=== PATIENT | male | born 1935 | race Caucasian/White ===

== ENCOUNTER 2019-05-02 23:51 | Inpatient (IN) | payer MEDICARE, BC ==
[~2019-05-02] VITALS: Ht 172.7 cm; Wt 92.1 kg
[2019-05-03] VITALS (8 sets, daily range): BP systolic 92–179; BP diastolic 50–74
--- NOTE | 2019-05-03 00:24 | NUR ---
MICHAEL FROM [facility] C/O "10PM. EXPRESSIVE APHASIA, +DIZZY X1 DAY AGO" NO NEURO DEFICITS, TO ER BED 1, VSS STABLE LABS DRAWN AND SENT OUT.
[2019-05-03 00:26] LABS: BASOPHILS # (AUTO) 0.1 /CMM (0.0-0.2); BASOPHILS % (AUTO) 0.9 % (0.0-2.0); EOSINOPHILS % (AUTO) 5.2 % (0.0-6.0); HEMATOCRIT 41 % (39-51); HEMOGLOBIN 13.7 g/dL (13.5-17.5); LYMPHOCYTES # (AUTO) 1.1 /CMM (0.8-4.8); LYMPHOCYTES % (AUTO) 11.8 % (20.0-44.0); MEAN CORPUSCULAR HGB CONC 34 g/dl (31.0-36.0); MEAN CORPUSCULAR VOLUME 86 fL (80-96); NEUTROPHILS # (AUTO) 6.4 /CMM (1.8-8.9); NEUTROPHILS % (AUTO) 71.1 % (43.0-81.0); PLATELET COUNT (AUTO) 187 /CMM (150-450); RED BLOOD CELL COUNT(AUTO) 4.75 MIL/uL (4.5-6.0)
[2019-05-03 00:38] LABS: CALCIUM, SERUM 9.8 mg/dL (8.5-10.1); CARBON DIOXIDE 27 mmol/L (21-32); CHLORIDE 103 mmol/L (98-107); CREATININE 1.7 mg/dL (0.6-1.3); GLUCOSE 128 mg/dL (74-106); POTASSIUM 4.3 mmol/L (3.5-5.1); SODIUM SERUM 139 mmol/L (136-145); UREA NITROGEN, BLOOD 40 mg/dL (7-18)
[2019-05-03] MEDS ORDERED: IOHEXOL-350 100 ML VIAL IV ONE (01:02)
[2019-05-03] MEDS ORDERED: IV NS 0.9% 250 ML IV ONE (01:03)
[2019-05-03] MEDS ORDERED: CT SWABBABLE VALVE TRANS SET 1 EA INFUS.SET MC ONE (01:03)
--- NOTE | 2019-05-03 01:08 | NUR ---
PT TAKEN TO CT
[2019-05-03] MEDS ORDERED: ASPI-605 PO (01:10)
[2019-05-03] MEDS ORDERED: CARV12.52 PO (01:10)
[2019-05-03] MEDS ORDERED: ICOS1CAP PO (01:10)
[2019-05-03] MEDS ORDERED: AMLO5TAB4 PO (01:11)
[2019-05-03] MEDS ORDERED: ROSU5TAB PO (01:12)
[2019-05-03] MEDS ORDERED: MAGN400T8 PO (01:12)
[2019-05-03] MEDS ORDERED: CHOL100040 PO (01:13)
[2019-05-03] MEDS ORDERED: VIT1CAPS27 PO (01:13)
[2019-05-03] MEDS ORDERED: CYAN100071 PO (01:14)
[2019-05-03] MEDS ORDERED: LOSA50TA39 PO (01:15)
[2019-05-03] MEDS ORDERED: HYDR-4077 PO (01:15)
[2019-05-03] MEDS ORDERED: CLON0.2T PO (01:16)
[2019-05-03] MEDS ORDERED: DOXE10CA2 PO (01:17)
--- NOTE | 2019-05-03 01:23 | NUR ---
PT RETURNED FROM CT
--- NOTE | 2019-05-03 01:27 | NUR ---
URINE COLLECTED AND SENT TO LAB
--- NOTE | 2019-05-03 02:57 | NUR ---
BED 111-1
[2019-05-03] MEDS ORDERED: MAG HYDROX/AL HYDROX/SIMETH 30 ML UDC PO PRN (03:00)
[2019-05-03] MEDS ORDERED: ACETAMINOPHEN 325 MG TABLET PO PRN (03:00)
--- NOTE | 2019-05-03 03:00 | NUR ---
METAL POLISHER AND BUFFER APPRENTICE OPENING NOTE RECEIVED REPORT FROM MARCOS ER NURSE. PATIENT IN BED A/O X4 WITH NO SIGN OF ANY DISTRESS. PATIENT HAS AND CAREGIVER AT BEDSIDE. IV ACCESS ON THE LFA #20 PATENT AND FLUSHING. NEURO ASSESSMENT HAS BEEN CHECKED NO SIGN OF DRIFTING OR ANY SORT. PATIENT HAS LOWER AND UPPER MILD WEAKNESS ON BED REST FOR NOW WITH URINAL AT BEDSIDE. ALL NEEDS HAVE BEEN MET PATIENT TOLERATING ON ROOM AIR AT O2 SAT OF 98%. ALL SAFETY PRECAUTION HAVE BEEN APPLIED, WILL CONTINUE TO MONITOR PATIENT.
--- NOTE | 2019-05-03 03:09 | NUR ---
GAVE REPORT TO DESIRE RN
--- NOTE | 2019-05-03 03:40 | NUR ---
TAKEN TO FLOOR VIA ACLS PROTOCOL
[2019-05-03] MEDS ORDERED: ENOXAPARIN SODIUM 40 MG/0.4 ML DISP.SYRIN SQ ONE (04:00)
[2019-05-03 05:15] LABS: APPEARANCE,URINE CLEAR (CLEAR); COLOR,URINE Light yellow (YELLOW)
[2019-05-03 05:16] LABS: BILIRUBIN,URINE NEGATIVE (NEGATIVE); BLOOD, URINE NEGATIVE Ery/uL (NEGATIVE); KETONES,URINE NEGATIVE (NEGATIVE); LEUKOCYTE ESTERASE ,URINE NEGATIVE (NEGATIVE); NITRITE, URINE NEGATIVE (NEGATIVE); PROTEIN,URINE 2+ mg/dl (NEGATIVE); UGLUCOSE NEGATIVE (NEGATIVE); UROBILINOGEN,URINE 0.2 EU/dL (0.2)
[2019-05-03 05:31] LABS: BACTERIA,URINE Rare /HPF (None Seen); RBC,URINE 0-2 /HPF (0-2); SQUAMOUS EPITHELIAL CELL,UR Rare /HPF (None Seen)
[2019-05-03] MEDS: BLOOD SUGAR DIAGNOSTIC 1 EACH STRIP IN SCH ×7 (07:13→21:42)
--- NOTE | 2019-05-03 07:46 | NUR ---
MOLECULAR GENETIC PATHOLOGIST CLOSING NOTE PATIENT IN BED WITH NO SIGN OF DISTRESS. TOLERATING ON ROOM AIR. CAREGIVER AT BED SIDE. NO SIGNIFICANT CHANGES THROUGHOUT THE NIGHT. ENDORSED PATIENT TO MORNING SHIFT NURSED FOR NAIN/.
--- NOTE | 2019-05-03 08:00 | NUR ---
CINETECHNICIAN AM NOTES RECEIVED PATIENT IN BED A/O X4 WITH NO SIGN OF ANY DISTRESS. PATIENT HAS AND CAREGIVER AT BEDSIDE. IV ACCESS ON THE LFA #20 PATENT AND FLUSHING. NEURO ASSESSMENT HAS BEEN CHECKED NO SIGN OF DRIFTING OR ANY SORT. PATIENT HAS LOWER AND UPPER MILD WEAKNESS ON BED REST BUT AMBULATES WITH ASSIST WITH FWW.WITH URINAL AT BEDSIDE. ON ROOM AIR AT O2 SAT OF 98%. ALL SAFETY PRECAUTION HAVE BEEN APPLIED, WILL CONTINUE TO MONITOR PATIENT.
[2019-05-03] MEDS ORDERED: Medication Not On Formulary EA (Rosuvastatin Calcium (Crestor) 1 TAB) PO SCH (09:00)
[2019-05-03] MEDS ORDERED: DOXEPIN HCL 10 MG CAPSULE PO SCH (09:00)
[2019-05-03] MEDS ORDERED: AMLODIPINE BESYLATE 5 MG TABLET PO SCH (09:00)
[2019-05-03] MEDS: MAGNESIUM OXIDE 400 MG TABLET PO SCH (09:21)
[2019-05-03] MEDS: hydrALAZINE HCL 50 MG TABLET PO SCH ×2 (09:23→16:04)
[2019-05-03] MEDS: LOSARTAN POTASSIUM 50 MG TABLET PO SCH ×2 (09:23→16:04)
[2019-05-03] MEDS: PANTOPRAZOLE 40 MG TABLET.DR PO SCH (09:23)
[2019-05-03] MEDS: CARVEDILOL 12.5 MG TABLET PO SCH ×2 (09:23→16:03)
[2019-05-03] MEDS: CLONIDINE HCL 0.1 MG TABLET PO SCH ×2 (09:24→16:03)
[2019-05-03] MEDS: ASPIRIN EC 325 MG TABLET.DR PO SCH (09:29)
[2019-05-03] MEDS: DOXEPIN HCL 10 MG CAPSULE PO SCH (10:25)
--- NOTE | 2019-05-03 12:00 | NUR ---
PT SITTING IN THE CHAIR WITH THE CG FEEDING HIM LUNCH.PT DENIES ANY PAIN/DISTRESS AND WANTS FRAPUCCINO. CG WILL BRING THE DRINK FOR THE PT.
--- NOTE | 2019-05-03 12:22 | NUR ---
Social work consult requested for stroke. Pt is an 83 year old male admitted to [facility] for TIA. Pt currently lives at home [[id number] [place] [address]] with his [Daisy Jacobs [phone]]. Pt presents as tired and is oriented x 4 [person, place, time, situation]. Pts and caregiver, Fran, at bedside. Per pts , pt has 2 caregivers that provide 20 hours of care per day and family feels well supported at home. No present mental health concerns, including suicidal and homicidal ideation, or any concerns with alcohol/substance abuse. No further school social worker needs identified at this time as pt family states he is well equipped at home with resources. SW will remain available should any needs arise.
[2019-05-03] MEDS ORDERED: IV NS 0.9% 1,000 ML BAG IV ONE (13:00)
--- NOTE | 2019-05-03 13:00 | NUR ---
PT SLEEPING COMFORTABLY IN BED WITH NO S/S OF PAIN OR DISTRESS.WILL MONITOR.
--- NOTE | 2019-05-03 17:22 | NUR ---
PT RESTING IN BED DENYING ANY PAIN OR DISTRESS.CALL LIGHT PLACED WITHIN REACH.
--- NOTE | 2019-05-03 20:00 | NUR ---
TRAFFIC INSPECTOR AM NOTES RECEIVED PATIENT IN BED A/O X4 WITH NO SIGN OF ANY DISTRESS. CAREGIVER AT BEDSIDE. IV ACCESS ON THE LFA #20 PATENT ,V/S STABLE AFEBRILE . DUE MEDS GIVEN ORDERED . NEURO ASSESSMENT CHECKED NO SIGN OF DRIFTING OR ANY SORT. PATIENT HAS LOWER AND UPPER MILD WEAKNESS ON BED REST BUT AMBULATES WITH ASSIST WITH FWW.WITH URINAL AT BEDSIDE. ON ROOM AIR AT O2 SAT OF 95%. ALL SAFETY PRECAUTION OBSERVED , WILL CONTINUE TO MONITOR PATIENT.
[2019-05-03] MEDS ORDERED: SIMVASTATIN 10 MG TABLET PO SCH (22:00)
--- NOTE | 2019-05-03 22:00 | NUR ---
BLOOD SUGAR AT 2200 HRS IS 142MG/DL NO COVERAGE GIVEN.
[2019-05-04] VITALS: BP 185/71
--- NOTE | 2019-05-04 | NUR ---
BLOOD SUGAR AT 12MN IS 110MG /DL NO COVERAGE GIVEN.
--- NOTE | 2019-05-04 | NUR ---
BLOOD PRESSURE OF 185/71,SPOKE TO LYUBOV HART WITH ORDER LABETALOL HCL 10MG IV Q 8 HRS PRN FOR SBP>160 MADE HER AWARE HR IS 60 /MIN SHE SAID ITS ALRIGHT TO GIVE.
[2019-05-04] MEDS ORDERED: LABETALOL HCL IV 100MG VIAL IV PRN (00:30)
[2019-05-04] MEDS: BLOOD SUGAR DIAGNOSTIC 1 EACH STRIP IN SCH ×4 (00:55→12:00)
[2019-05-04 01:00] VITALS: BP 160/70
--- NOTE | 2019-05-04 01:00 | NUR ---
RECHECK BLOOD PRESSURE AT 1 AM ,BP 158/75
[2019-05-04 04:00] VITALS: BP 159/70
--- NOTE | 2019-05-04 06:10 | NUR ---
RN NOTE: NOTIFIED ANNETTE CAMPBELL EXTRACTOR TENDER RAW STOCK ABOUT BS 178 AT 0600. PER DOSE INSTRUCTION, CALL HCP IF BS ABOVE 150. PER EXTRACTOR TENDER RAW STOCK, START PATIENT ON MILD S/S.
[2019-05-04] MEDS ORDERED: DEXTROSE 50%-WATER 50 ML DISP.SYRIN IV PRN (06:30)
[2019-05-04] MEDS ORDERED: INSULIN REGULAR, HUMAN 100 UNIT/ML 3 ML VIAL SQ PRN (06:30)
[2019-05-04 07:13] LABS: CHOLESTEROL 128 mg/dL (<200); HDL CHOLESTEROL 30 mg/dL (40-60); LDL 71 mg/dL (0-99); TRIGLYCERIDES 210 mg/dL (30-150)
[2019-05-04 07:18] LABS: BASOPHILS % (AUTO) 0.5 % (0.0-2.0); EOSINOPHILS % (AUTO) 4.6 % (0.0-6.0); HEMATOCRIT 40 % (39-51); HEMOGLOBIN 13.2 g/dL (13.5-17.5); LYMPHOCYTES # (AUTO) 1.1 /CMM (0.8-4.8); LYMPHOCYTES % (AUTO) 12.8 % (20.0-44.0); MEAN CORPUSCULAR HGB CONC 33 g/dl (31.0-36.0); MEAN CORPUSCULAR VOLUME 85 fL (80-96); MONOCYTES # (AUTO) 0.9 /CMM (0.1-1.30); NEUTROPHILS % (AUTO) 71.1 % (43.0-81.0); PLATELET COUNT (AUTO) 171 /CMM (150-450); RED BLOOD CELL COUNT(AUTO) 4.64 MIL/uL (4.5-6.0); WHITE BLOOD COUNT (AUTO) 8.4 K/uL (4.3-11.0)
[2019-05-04 07:31] LABS: ALANINE AMINOTRANSFERASE 23 U/L (12-78); ALBUMIN 3.1 g/dL (3.4-5.0); ALKALINE PHOSPHATASE 90 U/L (46-116); ASPARTATE AMINOTRANSFERASE 16 U/L (15-37); BILIRUBIN,TOTAL 0.5 mg/dL (0.2-1.0); CALCIUM, SERUM 9.5 mg/dL (8.5-10.1); CARBON DIOXIDE 25 mmol/L (21-32); CHLORIDE 102 mmol/L (98-107); CREATININE 1.8 mg/dL (0.6-1.3); GLUCOSE 132 mg/dL (74-106); MAGNESIUM 2.2 mg/dL (1.8-2.4); PHOSPHORUS 3.3 mg/dL (2.5-4.9); POTASSIUM 4.1 mmol/L (3.5-5.1); SODIUM SERUM 139 mmol/L (136-145); TOTAL PROTEIN, SERUM 6.3 g/dL (6.4-8.2); UREA NITROGEN, BLOOD 33 mg/dL (7-18)
[2019-05-04 08:00] VITALS: BP 180/81
[2019-05-04] MEDS: CLONIDINE HCL 0.1 MG TABLET PO SCH (08:29)
[2019-05-04] MEDS: PANTOPRAZOLE 40 MG TABLET.DR PO SCH (08:29)
[2019-05-04] MEDS: ASPIRIN EC 325 MG TABLET.DR PO SCH (08:29)
[2019-05-04] MEDS: CARVEDILOL 12.5 MG TABLET PO SCH (08:30)
[2019-05-04] MEDS: LOSARTAN POTASSIUM 50 MG TABLET PO SCH (08:33)
[2019-05-04] MEDS: hydrALAZINE HCL 50 MG TABLET PO SCH (08:33)
[2019-05-04] MEDS: MAGNESIUM OXIDE 400 MG TABLET PO SCH (08:34)
[2019-05-04] MEDS: DOXEPIN HCL 10 MG CAPSULE PO SCH (08:35)
[2019-05-04] MEDS ORDERED: AMLODIPINE BESYLATE 5 MG TABLET PO SCH (09:00)
[2019-05-04] MEDS ORDERED: ENOXAPARIN SODIUM 40 MG/0.4 ML DISP.SYRIN SQ SCH (09:00)
[2019-05-04] MEDS ORDERED: CLOPIDOGREL BISULFATE 75 MG TABLET PO SCH (10:00)
[2019-05-04 10:30] VITALS: BP 157/61
[2019-05-04] MEDS ORDERED: CLOP75TA15 PO (13:16)
[2019-05-04 16:00] VITALS: BP 150/68
--- NOTE | 2019-05-04 16:55 | NUR ---
rn note pt discharged home in stable condition, with Daisy, discharge instructions provided, teachings done, prescription given and faxed to the pharmacy, exit care done, pt verbalized understanding, pt refused picture of sacrum to be taken risks and benefits explained. iv site removed, id band removed, belongings list signed, and given to pt. hearing aids in pt's both ears. pt wheeled out to the private car.
== END 2019-05-04 16:50 | disposition home or self-care (01) | DRG 69 ==
LOC: ER 23:53 → TELE1 05-03 03:05 → MEDSG1 05-04 09:18
DX: G45.9 Transient cerebral ischemic attack, unspecified (principal); N17.0 Acute kidney failure with tubular necrosis; I13.0 Hypertensive heart and chronic kidney disease with heart failure and stage 1 through stage 4 chronic kidney disease, or unspecified chronic kidney disease; R47.01 Aphasia; G47.00 Insomnia, unspecified; E78.5 Hyperlipidemia, unspecified; N18.9 Chronic kidney disease, unspecified; I50.9 Heart failure, unspecified; R56.9 Unspecified convulsions; I71.2 Thoracic aortic aneurysm, without rupture
CPT/HCPCS: 36415; 70450-TC; 70496-TC; 70498-TC; 71045-TC; 80048-TC; 80053-TC; 80061-TC; 80305; 81000-TC; 82962-TC; 83735-TC; 84100-TC; 84443-TC; 84484-TC; 85025-TC; 85730-TC; 87081-TC; 92611-TC; 93307-TC; 97116-TC; 97530-TC; G0378; J1650; J1815; J3490; J7030; J7050; Q9967

== ENCOUNTER 2019-05-05 09:41 | Inpatient (IN) | payer MEDICARE, BC ==
[2019-05-05] VITALS (24 sets, daily range): BP systolic 140–188; BP diastolic 58–78
[~2019-05-05] VITALS: Ht 172.7 cm; Wt 93.0 kg
[~2019-05-05 09:41] MED LIST: AMLO5TAB4 PO; ASPI-605 PO; CARV12.52 PO; CHOL100040 PO; CLON0.2T PO; CLOP75TA15 PO; CYAN100071 PO; DOXE10CA2 PO; HYDR-4077 PO; ICOS1CAP PO; LOSA50TA39 PO; MAGN400T8 PO; ROSU5TAB PO; VIT1CAPS27 PO
[2019-05-05] MEDS ORDERED: IOHEXOL-350 100 ML VIAL IV ONE ×3 (09:53→14:33)
--- NOTE | 2019-05-05 10:06 | NUR ---
PATIENT [facility] ED BIB EMD FROM HOME C/C RT WEAKNESS ,PATIENT NON VERBAL AWAKE ABLE TO FOLLOW TRACT BS 125 ,HELPLOCK LFA ,OBTAINED LAC ,TRASFER TO CT FOE CT HEAD AND AND CTA WITH MONITOR
[2019-05-05 10:24] LABS: BASOPHILS # (AUTO) 0.1 /CMM (0.0-0.2); BASOPHILS % (AUTO) 0.7 % (0.0-2.0); EOSINOPHILS % (AUTO) 4.4 % (0.0-6.0); HEMATOCRIT 40 % (39-51); HEMOGLOBIN 13.2 g/dL (13.5-17.5); LYMPHOCYTES # (AUTO) 0.9 /CMM (0.8-4.8); LYMPHOCYTES % (AUTO) 10.7 % (20.0-44.0); MEAN CORPUSCULAR HGB CONC 33 g/dl (31.0-36.0); MEAN CORPUSCULAR VOLUME 86 fL (80-96); MONOCYTES % (AUTO) 11.8 % (2.0-12.0); NEUTROPHILS # (AUTO) 5.9 /CMM (1.8-8.9); NEUTROPHILS % (AUTO) 72.4 % (43.0-81.0); PLATELET COUNT (AUTO) 168 /CMM (150-450); RED BLOOD CELL COUNT(AUTO) 4.59 MIL/uL (4.5-6.0); WHITE BLOOD COUNT (AUTO) 8.1 K/uL (4.3-11.0)
--- NOTE | 2019-05-05 10:30 | NUR ---
daughter, caty [phone]
--- NOTE | 2019-05-05 10:44 | NUR ---
Patient non verbal Rt side droop ,rt side weakness his @ bedside made aware paln of care
--- NOTE | 2019-05-05 10:54 | NUR ---
CALLED [email or web address] SUPERVISOR METALIZING WAS PAGED
--- NOTE | 2019-05-05 10:57 | NUR ---
CALLED HOUSE SUP FOR ROSSY BED
[2019-05-05] MEDS ORDERED: ASPIRIN 300 MG/SUPP.RECT RC ONE ×2 (11:00→12:06)
--- NOTE | 2019-05-05 11:07 | NUR ---
CALLED CCT AT [facility]. SPOKE TO NILA TO SEE IF THERE ARE ANY AVAILABLE BEDS FOR PT TO BE TRANSFERRED PER FAMILY REQUEST.
--- NOTE | 2019-05-05 11:07 | NUR ---
Patient @ bedside requsting for [facility] aware
[2019-05-05 11:08] LABS: CALCIUM, SERUM 9.4 mg/dL (8.5-10.1); CARBON DIOXIDE 26 mmol/L (21-32); CHLORIDE 101 mmol/L (98-107); CREATININE 1.8 mg/dL (0.6-1.3); GLUCOSE 124 mg/dL (74-106); POTASSIUM 4.6 mmol/L (3.5-5.1); SODIUM SERUM 135 mmol/L (136-145); UREA NITROGEN, BLOOD 32 mg/dL (7-18)
--- NOTE | 2019-05-05 11:15 | NUR ---
Patient lethargic eys close desat Dr. John made aware -prep for intubation called RT
--- NOTE | 2019-05-05 11:16 | NUR ---
NURSING SUP GAVE BED 106.
[2019-05-05] MEDS ORDERED: PROPOFOL 100 ML ONE (11:26)
--- NOTE | 2019-05-05 11:30 | NUR ---
RT PATIENT WAS ORALLY INTUBATED BY DR GROSS WITH A 7.O ETT SECURED AT 24CM MID LIP. BILAT BREATH SOUNDS HEARD. POSITIVE CO2 DETECTOR COLOR CHANGE. PATIENT PLACED ON VENT WITH ORDERED SETTINGS. ALARMS CHECKED + AUDIBLE. BRUCEU BAG AT HOB Addendum: 05/05/19 at 1159 by ORVILLE ALMAGUER RT Amended: Links added.
[2019-05-05 11:43] LABS: CHOLESTEROL 124 mg/dL (<200); HDL CHOLESTEROL 26 mg/dL (40-60); LDL 71 mg/dL (0-99); TRIGLYCERIDES 254 mg/dL (30-150)
--- NOTE | 2019-05-05 11:44 | NUR ---
NURSING SUP GAVE ICU BED 259.
[2019-05-05] MEDS ORDERED: PROPOFOL 100 ML IV PRN ×2 (12:00→13:00)
[2019-05-05] MEDS ORDERED: PROPOFOL 200 MG/20 ML VIAL IV ONE (12:00)
--- NOTE | 2019-05-05 12:01 | NUR ---
Patient intubated noted bilateral lungs sound ,color checked changed Rt @ bedisde ,OG inserted noted bublimng sound x2 double checked by Mateo rN ,inseted mckenzie noted yellow urine Rt forearm 20 G diprivam indfusing well
--- NOTE | 2019-05-05 12:17 | NUR ---
Report given to Sophia JOHNSON RN
[2019-05-05] MEDS ORDERED: FUROSEMIDE 40 MG/4 ML VIAL ONE (12:24)
[2019-05-05] MEDS ORDERED: FUROSEMIDE 40 MG/4 ML VIAL IV ONE (12:30)
--- NOTE | 2019-05-05 12:52 | NUR ---
Transfer patient to 259-1 with RT ,manager monitoring ,patient intubated continue on diprivan 50 mcg infusing well
[2019-05-05] MEDS ORDERED: LABETALOL HCL IV 100MG VIAL IV PRN (13:00)
--- NOTE | 2019-05-05 13:00 | NUR ---
PATIENT ADMITTED FROM ER WITH DX OF ACUTE CVA. INTUBATED UPON ADMISSION-CONNECTED TO VENT ON ARRIVAL BY RT. ONGOING DIPRIVAN DRIP FROM ER AT 50 NCG/KG/MINUTED. PATIENT RESTLESS AND AGITATED, MOVING ALL EXTREMITIES STRONGLY BUT NOT FOLLOWING SIMPLE COMMANDS. INITIAL ADMISSION ASSESSMENT INITIATED. AFEBRILE. VITAL SIGNS STABLE WITHOUT PRESSORS. NO SKIN BREAKDOWN ON ADMISSION.
[2019-05-05] MEDS: PROPOFOL 100 ML IV PRN ×4 (14:23→23:10)
--- NOTE | 2019-05-05 14:30 | NUR ---
PATIENT SEEN BY VADIM STAPLETON, HOSPITALIST CONSULTING DR. ZAMUDIO. PAT NEUROLOGIST - NEED TO ACTIVATE CODE STROKE RE: CHANGE IN MENTAL STATUS SINCE LAST HEAD CT FROM ER. ALL BLOOD DRAWN PER PROTOCOL, PATIENT BROUGHT TO RADIOLOGY IN 5 MINUTES FOR HEAD/NECK CTA , HEAD CT PER MD. TELENEUROLOGIST MONITOR IN UNIT .
[2019-05-05 14:41] LABS: BASOPHILS % (AUTO) 0.4 % (0.0-2.0); EOSINOPHILS % (AUTO) 1.5 % (0.0-6.0); HEMATOCRIT 42 % (39-51); HEMOGLOBIN 13.9 g/dL (13.5-17.5); LYMPHOCYTES % (AUTO) 8.8 % (20.0-44.0); MEAN CORPUSCULAR HGB CONC 33 g/dl (31.0-36.0); MEAN CORPUSCULAR VOLUME 85 fL (80-96); MONOCYTES # (AUTO) 0.7 /CMM (0.1-1.30); MONOCYTES % (AUTO) 6.5 % (2.0-12.0); NEUTROPHILS % (AUTO) 82.8 % (43.0-81.0); PLATELET COUNT (AUTO) 174 /CMM (150-450); RED BLOOD CELL COUNT(AUTO) 4.91 MIL/uL (4.5-6.0); WHITE BLOOD COUNT (AUTO) 10.9 K/uL (4.3-11.0)
[2019-05-05 14:45] LABS: CALCIUM, SERUM 9.6 mg/dL (8.5-10.1); CARBON DIOXIDE 29 mmol/L (21-32); CHLORIDE 103 mmol/L (98-107); CREATININE 1.9 mg/dL (0.6-1.3); GLUCOSE 136 mg/dL (74-106); POTASSIUM 4.8 mmol/L (3.5-5.1); SODIUM SERUM 139 mmol/L (136-145); UREA NITROGEN, BLOOD 31 mg/dL (7-18)
--- NOTE | 2019-05-05 14:55 | NUR ---
DR. AGUDELO RADIOLOGIST CALLED FOR RESULTS-WANTS TO SPEAK TO HOSPITALIST. MD NUMBER GIVEN TO VADIM STAPLETON TO CALL.
--- NOTE | 2019-05-05 15:15 | NUR ---
HEAD/NECK CTA RESULTS RELAYED TO VADIM STAPLETON.
[2019-05-05] MEDS: BLOOD SUGAR DIAGNOSTIC 1 EACH STRIP IN SCH ×2 (16:54→23:58)
[2019-05-05] MEDS ORDERED: LOSARTAN POTASSIUM 50 MG TABLET PO SCH (17:00)
[2019-05-05] MEDS ORDERED: CARVEDILOL 12.5 MG TABLET PO SCH (17:00)
[2019-05-05] MEDS ORDERED: CLONIDINE HCL 0.2 MG TABLET PO SCH (17:00)
[2019-05-05] MEDS ORDERED: hydrALAZINE HCL 50 MG TABLET PO SCH (17:00)
[2019-05-05] MEDS ORDERED: PHARMACY TO CHANGE PO MEDS TO GT/NG XX PRN (17:30)
[2019-05-05] MEDS ORDERED: CLONIDINE HCL 0.2 MG TABLET GT SCH (17:33)
[2019-05-05] MEDS: IV D5/0.45 NACL 1,000 ML IV PRN (18:06)
[2019-05-05 19:26] LABS: ABG BASE EXCESS 1.7 mmol/L; ABG OXYGEN SATURATION 97.3 % (92.0-98.5); ABG PCO2 31.4 mmHg (35.0-45.0); ABG PH 7.503 (7.350-7.450); ABG PO2 105.5 mmHg (75.0-100.0); AaDO2 287.8 mmHg; COHb 0.2 % (0.5-1.5); MetHb 0.5 % (0.0-1.5); O2Hb 96.6 % (94.0-97.0); SITE, ABG Right Radial
--- NOTE | 2019-05-05 20:00 | NUR ---
SHIP LABORER NOTE RECEIVED PT IN BED SEDATED. ETT INTACT AND PATENT. TOLERATING VENT SETTINGS WELL. PT WITH BILATERAL SOFT WRIST RESTRAINTS. 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 F/C INTACT AND PATENT DRAINING YELLOWISH COLOR URINE. PT REMAIN NPO. ON IVF D5 1/2 NS AT 75 ML/HR AT LFA #20 G AND PROPOFOL 50 MCG/HR/MIN AT RFA #20 G, BOTH SITE WITH NO S/S OF INFILTRATION NOTED. REPOSITION HIM FOR COMFORT. ALL NEEDS ATTENDED. SIDE RAILS UP X 3 AND CALL LIGHT WITHIN REACH. CONTINUE TO MONITOR HIM.
[2019-05-06] VITALS (72 sets, daily range): BP systolic 132–186; BP diastolic 56–109
[2019-05-06] MEDS: PROPOFOL 100 ML IV PRN ×9 (01:36→23:15)
[2019-05-06 05:05] LABS: BASOPHILS # (AUTO) 0.1 /CMM (0.0-0.2); BASOPHILS % (AUTO) 0.6 % (0.0-2.0); HEMATOCRIT 40 % (39-51); HEMOGLOBIN 13.4 g/dL (13.5-17.5); LYMPHOCYTES % (AUTO) 7.6 % (20.0-44.0); MEAN CORPUSCULAR HGB CONC 34 g/dl (31.0-36.0); MEAN CORPUSCULAR VOLUME 86 fL (80-96); MONOCYTES # (AUTO) 1.5 /CMM (0.1-1.30); MONOCYTES % (AUTO) 11.4 % (2.0-12.0); NEUTROPHILS # (AUTO) 9.9 /CMM (1.8-8.9); NEUTROPHILS % (AUTO) 77.4 % (43.0-81.0); PLATELET COUNT (AUTO) 184 /CMM (150-450); RED BLOOD CELL COUNT(AUTO) 4.67 MIL/uL (4.5-6.0); WHITE BLOOD COUNT (AUTO) 12.7 K/uL (4.3-11.0)
[2019-05-06 05:10] LABS: CALCIUM, SERUM 9.6 mg/dL (8.5-10.1); CARBON DIOXIDE 26 mmol/L (21-32); CHLORIDE 102 mmol/L (98-107); GLUCOSE 113 mg/dL (74-106); POTASSIUM 4.1 mmol/L (3.5-5.1); SODIUM SERUM 138 mmol/L (136-145); UREA NITROGEN, BLOOD 30 mg/dL (7-18)
[2019-05-06] MEDS: BLOOD SUGAR DIAGNOSTIC 1 EACH STRIP IN SCH ×3 (05:48→17:59)
[2019-05-06] MEDS: IV D5/0.45 NACL 1,000 ML IV PRN ×2 (06:39→20:17)
--- NOTE | 2019-05-06 06:53 | NUR ---
SALVAGE WORKER NOTE PT IN BED SEDATED. NO AGITATION NOTED. NO S/S OF PAIN NOTED. ON TELE MONITOR SR WITH BBB AND 1ST DEGREE AV BLOCK HR 68. F/C INTACT AND PATENT DRAINING YELLOWISH COLOR URINE. IVF D51/2 NS INFUSING AT 75 ML/HR AND PROPOFOL INFUSING AT 50 MCG/HR/MIN. NO S/S OF INFILTRATION NOTED. REPOSITION HIM Q2H, KEPT HIM DRY AND CLEAN. PT REMAIN WITH BILATERAL SOFT WRIST RESTRAINTS. ALL NEEDS ATTENDED. SIDE RAILS UP X 3 AND CALL LIGHT WITHIN REACH. WILL ENDORSE TO DAY SHIFT NURSE FOR CONTINUE TO CARE.
[2019-05-06] MEDS ORDERED: PROPOFOL 100 ML IV PRN (08:00)
[2019-05-06] MEDS ORDERED: AMLODIPINE BESYLATE 5 MG TABLET GT SCH (09:00)
[2019-05-06] MEDS ORDERED: ATORVASTATIN 10 MG TABLET GT SCH (09:00)
[2019-05-06] MEDS ORDERED: ASPIRIN 300 MG/SUPP.RECT RC SCH (09:00)
[2019-05-06] MEDS: MULTIVITAMIN/LUTEIN/MINERALS 1 TAB GT SCH ×2 (09:00→17:00)
[2019-05-06] MEDS ORDERED: CLOPIDOGREL BISULFATE 75 MG TABLET GT SCH (09:00)
[2019-05-06] MEDS ORDERED: MAGNESIUM OXIDE 400 MG TABLET GT SCH (09:00)
[2019-05-06] MEDS ORDERED: ASPIRIN 81 MG TAB.CHEW GT SCH (09:00)
[2019-05-06] MEDS ORDERED: PANTOPRAZOLE 40 MG VIAL IV SCH (09:00)
[2019-05-06] MEDS: CARVEDILOL 12.5 MG TABLET GT SCH ×2 (09:34→17:00)
[2019-05-06] MEDS: LOSARTAN POTASSIUM 50 MG TABLET GT SCH ×2 (09:34→17:00)
[2019-05-06] MEDS: hydrALAZINE HCL 50 MG TABLET GT SCH ×2 (09:34→17:00)
--- NOTE | 2019-05-06 11:45 | NUR ---
RN NOTES 0730-RECEIVED PATIENT FROM RN. PATIENT ORALLY INTUIBATED, ON AC MODE, ON PROPOFOL DRIP AT 50 MCG/KG/MIN. NOTED PATIENT MOVES EXTREMITIES AT TIMES. 0900-PATIENT DAUGHTER CALLED FOR UPDATE. REQUEST FOR TRANSFER RELAYED TO [facility], PMD ALSO NOITIFED. 1030-CT SCAN DONE, PATIENT SEDATION VACATION DONE, PATIENT STARTS TO WAKE UP, NOTED TO ABLE TO FOLLOW SIMPLE COMMANDS, AT TIMES NOT FOLLOWING, STARTS TO GET AGITATED, PATIENT TRIES TO KICK STAF AND STUDENT NURSE WITH HIS RIGHT AND LEFT LEG.EXPLAINED TO HIM HIS SITUATION, DR PUENTE IN THE ROOM WHEN PATIENT IS AWAKE, DR BEAN AND DR GARCIA ALSO INFORMED OF PATIENT STATUS 1130PATIENT DAUGHTER AND VISITS, THEY WERE INFOREMD OF APTIENT STATUS WHEN SEDATION VACATION WAS INITIATED. PATIENT AT 50 MCG/KG/MIN OF PROPOFOL THIS TIME. ALSO INFORMED THEM THAT REQUEST FOR TRANSFER HAS BEEN RELAYED TO DEVELOPER ANALYST AND THIS TIME [facility] WILL EVAL AND THEY WILL GIVE NOTICE OF STATUS.
--- NOTE | 2019-05-06 14:05 | NUR ---
RN NOTES 0934-BP NOTED, PER DR THOMAS'S INSTRUCTIONS, HOLD ALL BP MEDS THIS TIME.
[2019-05-06] MEDS ORDERED: CLONIDINE HCL 0.1 MG TABLET PO SCH (17:00)
[2019-05-06 17:24] LABS: APPEARANCE,URINE CLEAR (CLEAR); BILIRUBIN,URINE NEGATIVE (NEGATIVE); BLOOD, URINE MODERATE Ery/uL (NEGATIVE); COLOR,URINE YELLOW (YELLOW); KETONES,URINE NEGATIVE (NEGATIVE); LEUKOCYTE ESTERASE ,URINE NEGATIVE (NEGATIVE); NITRITE, URINE NEGATIVE (NEGATIVE); PROTEIN,URINE 100 mg/dl (NEGATIVE); UGLUCOSE NEGATIVE (NEGATIVE); UROBILINOGEN,URINE 0.2 EU/dL (0.2)
[2019-05-06 17:30] LABS: BACTERIA,URINE Rare /HPF (None Seen); RBC,URINE 51-80 /HPF (0-2); SQUAMOUS EPITHELIAL CELL,UR Rare /HPF (None Seen)
[2019-05-06 17:34] LABS: CREATININE, URINE 126.5 MG/DL (30.0-125.0)
--- NOTE | 2019-05-06 18:10 | NUR ---
RT NOTE PT REMAINS MECHANICALLY VENTILATED VIA 7.0 ETT 24 CM AT LIP. CUFF INFLATED. ETT SECURE. VENTILATOR SETTINGS PRESCRIBED. ALARMS SET PER PROTOCOL AND AUDIBLE. VENT PLUGGED IN TO RED OUTLET. AMBU BAG AT BED SIDE. NO DISTRESS NOTED. Addendum: 05/06/19 at 1811 by GAYLA CRUZ RT Amended: Links added.
[2019-05-06 18:33] LABS: EOSINOPHIL,URINE None Seen
--- NOTE | 2019-05-06 18:42 | NUR ---
RN NOTES 1600-PATIENT AFEBRILE. REMAINS ON IVF FOR FLUIDS.FAMILY AT BEDSIDE. PATIENT NOTED TO MOVE ARMS AT TIMES, EYES CLOSED MOSTLY, PERRLA.PROPOFOL DRIP AT 50 MCG/KG/MIN. PATIENT REPOSITIONED FOR COMFORT AND SAFETY. DAUGHTER CHLOÉ STATES SECURITY SYSTEM INSTALLER IS COMMUNICATING WITH HER REGARDING STATUS OF THE TRANSFER. 1800-DR SYKES SPOKE TO FAMILY IN THE ROOM REGARDING PATIENT STATUS.
--- NOTE | 2019-05-06 19:21 | NUR ---
RN NOTES CALL RECEIVED FROM [facility].PATIENT HAS BED, 8S46, DR MILLER ACCEPTING, TO CALL [phone] FOR REPORT. PATIENT DAUGHTER MADE AWARE.CALLED AMBULANCE [phone], PER KELLEY, THEY DON'T HAVE ANY NURSE. CALLED [phone] OFFICE, NO ONE ANSWERING. CALLED JASVIR, [address] ENGINEER FOR JOSSUE'S NUMBER. INFANT ROOM TEACHER, BEARING RING ASSEMBLER ALSO ASKED FOR ASSISTANCE.
--- NOTE | 2019-05-06 20:00 | NUR ---
RN NOTES RECEIVED PATIENT FROM AM RN. PATIENT ORALLY INTUBATED, ON AC MODE, ON PROPOFOL DRIP AT 50 MCG/KG/MIN. NOTED PATIENT MOVES EXTREMITIES AT TIMES.PATIENT'S FAMILY MEMBERS ARE AT THE BEDSIDE AND AWAITING FOR TRANSFER TO [facility] AT [phone]. ALL SAFETY MEASURES IMPLEMENTED. BILATERAL SOFT WRIST RESTRAINTS ARE IN PLACE.PEDRO CATH IS IN PLACE DRAINING ON GRAVITY. OG TUBE IS IN PLACE. RFA G20 AND LEFT FA G20 IV LINES ARE PATIENT AND INTACT WITH IV FLUIDS ORDERED.WILL CONTINUE TO MONITOR.
--- NOTE | 2019-05-06 20:15 | NUR ---
RN NOTES PATIENT DAUGHTER CHLOÉ INFORMED OF THE CURRENT ACTION BEING DONE TO LOOK FOR AMBULANCE FOR TRANSFER, INFORMED HER THAT THE STAFF IS LOOKING FOR WHICH EVER AMBULANCE WHO CAN TRANSFER HER FATHER THE SOONEST.
--- NOTE | 2019-05-06 23:30 | NUR ---
RN NOTES CALLED [facility] AND GAVE REPORT TO DEAN HAMMOND . TRANSPORTATION WILL BE HERE AT 0145.WILL CONTINUE TO MONITOR PATIENT CLOSELY
[2019-05-07] VITALS (10 sets, daily range): BP systolic 150–173; BP diastolic 60–76
[2019-05-07] MEDS: BLOOD SUGAR DIAGNOSTIC 1 EACH STRIP IN SCH (00:08)
--- NOTE | 2019-05-07 01:01 | NUR ---
WRONG DAY AND TIME DOCUMENTATION Addendum: 05/07/19 at 0102 by KAREN AVALOS RN Amended: Links added.
[2019-05-07] MEDS ORDERED: ACETAMINOPHEN 650 MG/20.3 ML UDC NG PRN (01:30)
[2019-05-07] MEDS: PROPOFOL 100 ML IV PRN (02:09)
--- NOTE | 2019-05-07 03:05 | NUR ---
RN NOTES DEVON IS IN THE UNIT TO TRANSPORT THE PATIENT TO [facility] WITH RN /RT HERVE. PATIENT IS LEAVING HOSPITAL AT 0330. PATIENT'S WRIST BAND HAS BEEN REMOVED. REPORT GIVEN TO DEVON EDGAR. NO BELONGINGS WITH THE PATIENT. PATIENT IS LEAVING WITH PEDRO CATHETER AND RFA G20 AND LFA G20 IV LINES IN PLACE.
== END 2019-05-07 03:05 | disposition short-term general hospital (02) | DRG 64 ==
LOC: ER 09:42 → ICU 11:34
PROVIDERS: ADMIT Nurse Practitioner Acute Care; ATTEND Family Medicine
PROC: 5A1945Z Respiratory Ventilation, 24-96 Consecutive Hours (ICD-10-PCS; principal; 2019-05-05)
PROC: 0BH17EZ Insertion of Endotracheal Airway into Trachea, Via Natural or Artificial Opening (ICD-10-PCS; 2019-05-05)
DX: I63.9 Cerebral infarction, unspecified (principal); R40.2342 Coma scale, best motor response, flexion withdrawal, at arrival to emergency department; J96.01 Acute respiratory failure with hypoxia; N17.0 Acute kidney failure with tubular necrosis; G81.91 Hemiplegia, unspecified affecting right dominant side; I13.0 Hypertensive heart and chronic kidney disease with heart failure and stage 1 through stage 4 chronic kidney disease, or unspecified chronic kidney disease; G91.2 (Idiopathic) normal pressure hydrocephalus; J98.11 Atelectasis; G93.40 Encephalopathy, unspecified; R47.01 Aphasia; R40.2242 Coma scale, best verbal response, confused conversation, at arrival to emergency department; R40.2142 Coma scale, eyes open, spontaneous, at arrival to emergency department; Z86.73 Personal history of transient ischemic attack (TIA), and cerebral infarction without residual deficits; N18.9 Chronic kidney disease, unspecified; R73.9 Hyperglycemia, unspecified; E78.5 Hyperlipidemia, unspecified; I50.9 Heart failure, unspecified; Z98.2 Presence of cerebrospinal fluid drainage device; G47.00 Insomnia, unspecified; I71.2 Thoracic aortic aneurysm, without rupture; R29.810 Facial weakness; Z95.1 Presence of aortocoronary bypass graft; I65.02 Occlusion and stenosis of left vertebral artery
CPT/HCPCS: 31720; 36415; 36600; 70450-TC; 70496-TC; 70498-TC; 71045-TC; 80048-TC; 80061-TC; 80305; 81000-TC; 82570-TC; 82962-TC; 83880; 84155-TC; 84300-TC; 84484-TC; 85025-TC; 85652-TC; 85730-TC; 86850-TC; 87086-TC; 94002-TC; 94003-TC; 94760-TC; 94799-TC; 99082-TC; C9113; G0378; J1940; J2704; J3490; J7030; Q9967